=== PATIENT | female | born 2005 | race Hispanic/Latino ===

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

== ENCOUNTER 2025-08-26 12:01 | Emergency (ER) | payer SELFPAY ==
[2025-08-26 14:29] LABS: Pregnancy Test - Urine (BHCG) Negative (Negative); Pregu Control Background? CLEAR/WHITE (CLR/WHITE); Pregu Control Bar Appear? YES (CONTROL BAR)
== END 2025-08-26 15:20 | disposition home or self-care (01) ==
LOC: ERS 12:01
DX: B34.9 Viral infection, unspecified (principal); R05.9 Cough, unspecified; F17.290 Nicotine dependence, other tobacco product, uncomplicated
CPT/HCPCS: 81025; 87081; 87428; 87430